=== PATIENT | female | born 1955 | race Hispanic/Latino ===

== ENCOUNTER 2019-09-27 07:27 | Outpatient (CLI) | payer MEDICARE ==
[2019-09-27 12:13] LABS: #Eosinphils 0.2 thou/uL (0.0-0.7); #Lymphocytes 2.9 thou/uL (1.20-3.40); %Basophils 0.4 % (0.0-1.0); %Eosinophils 2.1 % (0.0-10.0); %Lymphocytes 28.7 % (21.0-51.0); %Monocytes 9.9 % (0.0-10.0); %Neutrophils 58.9 % (42.0-75.0); Hemoglobin 11.6 g/dL (12.0-16.0); Mean Corpuscular HGB CONC 33.7 g/dL (32.0-36.0); Mean Corpuscular Hemoglobin 31.5 pg (27.0-31.0); Mean Corpuscular Volume 93.4 fL (78.0-98.0); Mean Platelet Volume 8.5 fL (7.4-10.4); Platelet Count 297 thou/uL (130-400); RBC Distribution Width 11.8 % (11.5-14.5); Red Blood Cell (RBC) Count 3.69 mill/uL (4.20-5.40); White Blood Cell (WBC) Count 10.2 thou/uL (4.8-10.8)
[2019-09-27 12:31] LABS: ALT (SGPT) 10 U/L (8-55); AST (SGOT) 17 U/L (5-34); Albumin 4.2 g/dL (3.4-4.8); Alkaline Phosphatase 74 U/L (40-110); Anion Gap 11 mmol/L (10-20); BUN (Urea Nitrogen) 23 mg/dL (9.8-20.1); Bilirubin, Total 0.4 mg/dL (0.2-1.2); Calc. Creatinine Clearance 0 mL/min (70-130); Calcium 9.3 mg/dL (7.8-10.44); Carbon Dioxide 25 mmol/L (23-31); Chloride 103 mmol/L (98-107); Estimated GFR-MDRD 45; Globulin 3.3 g/dL (2.4-3.5); Glucose 281 mg/dL (80-115); Potassium 4.6 mmol/L (3.5-5.1); Protein, Total 7.5 g/dL (6.0-8.3); Sodium 134 mmol/L (136-145)
--- NOTE | 2019-09-27 14:25 | EKG ---
Test Reason : Blood Pressure : / mmHG Vent. Rate : 087 BPM Atrial Rate : 087 BPM P-R Int : 158 ms QRS Dur : 094 ms QT Int : 390 ms P-R-T Axes : 069 067 116 degrees QTc Int : 469 ms Sinus rhythm with frequent PAC's Voltage criteria for left ventricular hypertrophy Nonspecific ST and T wave abnormality Abnormal ECG Confirmed by DR. Cait GARG ([id number]) on 09/27/2019 2:25:08 PM Referred By: ANKITA Confirmed By:DR. Cait GARG
== END 2019-09-27 07:28 | disposition home or self-care (01) ==
LOC: LABBT 07:27
PROVIDERS: ATTEND Specialist
DX: Z01.818 Encounter for other preprocedural examination (principal); I12.9 Hypertensive chronic kidney disease with stage 1 through stage 4 chronic kidney disease, or unspecified chronic kidney disease; E11.22 Type 2 diabetes mellitus with diabetic chronic kidney disease; K43.2 Incisional hernia without obstruction or gangrene
CPT/HCPCS: 80053; 85025; 93005; 93010

== ENCOUNTER 2019-10-02 08:42 | Inpatient (IN) | payer MEDICARE ==
[2019-09-27 11:16] VITALS: BMI 29.5
--- NOTE | 2019-09-30 10:10 | HP ---
HISTORY OF PRESENT ILLNESS: Luisa Horowitz is a 64-year-old female, who on 09/28/2007 had a ventral hernia repair, omentectomy, resection of anterior abdominal wall excessive skin, performed by Dr. Hanks. Mesh was used to reinforce the closure. The patient has suffered a recurrence. She has no other hernia to be present more than 30 years since after . PAST MEDICAL HISTORY: 1. Diabetes. 2. Hypertension. 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 In 2005, she had an echocardiogram, showing arterial sclerosis as a known murmur, asymptomatic cardiac lambert, no chest pain or pressure. Tobacco, none. Alcohol, none. ALLERGIES: NONE. MEDICATIONS: 1. Metformin 1000 mg twice a day. 2. Glipizide 5 mg twice a day. 3. Benicar 40 mg once a day. 4. Amlodipine 10 mg once a day. 5. Hydrochlorothiazide 25 mg. 6. Metoprolol 50 mg a day. She has been recommended colonoscopy, but has not downtime to do that. REVIEW OF SYSTEMS: Ten-point noncontributory, otherwise no cardiac symptoms. PHYSICAL EXAMINATION: VITAL SIGNS: Weight 155 pounds, height 5 feet 1 inches, 30 BMI, blood pressure 196/73, heart rate 101, temperature 97.9 degrees. HEAD, EARS, EYES, NOSE AND THROAT: Unremarkable. LUNGS: Clear to auscultation. CARDIAC: Regular rate and rhythm. A 2/6 ejection murmur. ABDOMEN: Soft and nontender. Between the pubis and the umbilicus, there is a hernia sac. On supine, I can incompletely reduce this. The defect seems to be moderate. The patient has about a dime-sized breakdown of skin with healthy granulation tissue. EXTREMITIES: Unremarkable. No ankle edema. NEUROLOGIC: Intact. LYMPHATIC: No lymphadenopathy in neck, axilla, groins. SKIN: Normal. ASSESSMENT AND PLAN: 1. Incisional hernia, previously repaired in [address] Hanks. Plan robot repair possibly using mesh. I have to perform an open procedure, remove the redundant hernia sac. She will wear a Band-Aid antibiotic ointment to protect the skin and prevent it from being hopefully progressing to close this open area, but if does not, we will proceed. She understands risks and benefits and consent. We will plan robot mesh repair of incisional hernia with possible open resection of the hernia sac. 2. Diabetes mellitus. 3. Hypertension. Job ID: [id number]
[2019-10-02] MEDS ORDERED: Rocuronium Bromide 10 MG/ML (10ML VIAL) ONE (09:42)
[2019-10-02] MEDS ORDERED: PROPOFOL 200 MG/20 ML VIAL ONE (09:42)
[2019-10-02] MEDS ORDERED: Glycopyrrolate 0.2 MG/ML 5 ML SYRINGE ONE (09:42)
[2019-10-02] MEDS ORDERED: Ondansetron PF 4 MG/2 ML Vial ONE (09:42)
[2019-10-02] MEDS ORDERED: Lidocaine 1% PF 5 ML VIAL ONE (09:42)
[2019-10-02] MEDS ORDERED: Ketorolac Tromethamine 30 MG/ML VIAL ONE (09:50)
[2019-10-02] MEDS ORDERED: Lidocaine 2% PF 5 ML VIAL ONE (10:15)
[2019-10-02] MEDS ORDERED: Bupivacaine HCl 0.5%/Epinephrine 1:200,000/PF 30 ml Vial ONE (10:47)
[2019-10-02] MEDS ORDERED: Famotidine/PF 20 mg/2ml Vial ONE (11:14)
[2019-10-02] MEDS ORDERED: Fentanyl 100 MCG/2 ML VIAL ONE ×2 (11:14→15:48)
[2019-10-02] MEDS ORDERED: Dextrose 5% in Water 1,000 ML IV PRN (13:53)
[2019-10-02] MEDS ORDERED: Ondansetron ODT 4 MG TAB PO PRN (13:53)
[2019-10-02] MEDS ORDERED: Morphine 4 MG/ML VIAL SLOW IVP PRN (13:53)
[2019-10-02] MEDS ORDERED: Morphine 2 MG/ML SYRINGE SLOW IVP PRN (13:53)
[2019-10-02] MEDS ORDERED: hydrALAZINE 20 MG/ML VIAL SLOW IVP PRN (13:53)
[2019-10-02] MEDS ORDERED: Dextrose 50% Abboject 50 ML SYRINGE SLOW IVP PRN (13:53)
[2019-10-02] MEDS ORDERED: Ondansetron PF 4 MG/2 ML Vial IVP PRN (13:53)
[2019-10-02] MEDS ORDERED: Acetaminophen 500 MG TAB PO PRN (13:57)
[2019-10-02] MEDS ORDERED: Acetaminophen 1,000 MG in Premix Bag 1 BAG IVPB PRN (13:57)
[2019-10-02] MEDS ORDERED: Promethazine HCl 25 MG/ML VIAL IM PRN (14:18)
[2019-10-02] MEDS ORDERED: Ondansetron HCl/PF 4 MG/2 ML Vial IVP PRN (14:18)
[2019-10-02] MEDS ORDERED: Promethazine HCl 25 MG/ML VIAL SLOW IVP PRN (14:18)
--- NOTE | 2019-10-02 16:28 | OP ---
DATE OF PROCEDURE: 10/02/2019 PREOPERATIVE DIAGNOSIS: Recurrent incisional hernia with incarcerated small bowel and colon with small dime size skin excoriation from a pressure over close. POSTOPERATIVE DIAGNOSIS: Recurrent incisional hernia with incarcerated small bowel and colon with small dime size skin excoriation from a pressure over close. Enterotomy closed intraoperatively. Severe adhesions with small bowel adherent to old mesh eventrated into the large hernia sac, suprapubic lower midline. PROCEDURES PERFORMED: Robot laparoscopic adhesiolysis noting Indonesian cheese defects in the fascia superiorly midline above her incarcerated incisional hernia with reduction of incarceration, laparoscopic adhesiolysis, laparoscopic repair of enterorrhaphy, closure of fascial defect. Note, plans to return to the operating [address] mesh to reinforce this repair to prevent recurrence and to excise the hernia sac and old mesh through skin incisions. ANESTHESIA: General, local 0.5% Marcaine with epinephrine 30 mL. DESCRIPTION OF PROCEDURE: The patient was taken to the operating room, where under general anesthesia, Rios catheter was placed at the beginning of procedure, removed at the end. Abdomen was prepared with ChloraPrep and draped in routine fashion. A supraumbilical left midline incision was made. Pneumoperitoneum to 15 mmHg with a Veress needle, replaced with an 11 mm port balloon and video laparoscope was inserted. Right and left lateral incision was made, 8 mm port was placed. Robot was docked with the patient in Trendelenburg. There was noted to be adhesions of the small bowel and omentum to the anterior abdominal wall and these were taken down laparoscopically with cautery hemostasis. There was noted to be incarcerated small bowel and colon into hernia defect below this. There was a Indonesian cheese type defects several centimeters above the main large incarcerated incisional hernia. The adhesions were taken down. Colon reduced as possible. There was evident mesh eventrated into the hernia sac. I had to divide some of the mesh and remove some of the mesh, unable to see it before complete the adhesiolysis. Once the adhesiolysis was completed, there was noted to be a small defect in the small bowel. This was closed with continuous suture of 3-0 V-Loc suture. Once this was closed to and fro, good closure was approximated and accomplished without narrowing. No stool was noted. No spillage noted. Good hemostasis noted. Pneumoperitoneum reduced to 8 mmHg and #1 Stratafix suture used to close the defect along with adjacent Indonesian cheese defects with to and fro suture. Once this was accomplished, pneumoperitoneum reduced. Rios was removed. All instruments were removed. There was good hemostasis noted. Plan at this time is to admit the patient on intravenous antibiotics and plan in 40 hours. Repeat robot laparoscopic application of mesh to reinforce this fascial closure and to excise the anterior look very large massive hernia sac along with excoriated skin and also the old mesh anteriorly. Job ID: [id number]
[2019-10-02] MEDS: Sodium Chloride 0.9% 1,000 ML IV SCH (17:06)
[2019-10-02] MEDS: glipiZIDE 5 MG TAB PO SCH (17:06)
[2019-10-02] MEDS: Meropenem 2 GM, Admixture Fee 1 EACH in Sodium Chloride 0.9% 100 ML IVPB SCH (18:27)
[2019-10-02] MEDS: Ketorolac Tromethamine 30 MG/ML VIAL IVP PRN (18:34)
[2019-10-02] MEDS: traMADol HCl 50 MG TAB PO PRN (19:11)
[2019-10-02] MEDS: Enoxaparin Sodium 30 MG/0.3 ML SYRINGE SC SCH (20:04)
[2019-10-03] MEDS: Meropenem 2 GM, Admixture Fee 1 EACH in Sodium Chloride 0.9% 100 ML IVPB SCH ×3 (02:21→17:51)
[2019-10-03] MEDS: Sodium Chloride 0.9% 1,000 ML IV SCH ×2 (02:23→06:24)
[2019-10-03] MEDS: traMADol HCl 50 MG TAB PO PRN (05:43)
[2019-10-03 06:21] LABS: #Eosinphils 0.1 thou/uL (0.0-0.7); #Lymphocytes 2.3 thou/uL (1.20-3.40); #Monocytes 1.5 thou/uL (0.11-0.59); #Neutrophils 9.1 thou/uL (1.40-6.50); %Basophils 0.3 % (0.0-1.0); %Eosinophils 0.5 % (0.0-10.0); %Lymphocytes 17.8 % (21.0-51.0); %Monocytes 11.5 % (0.0-10.0); %Neutrophils 69.9 % (42.0-75.0); Hemoglobin 10.8 g/dL (12.0-16.0); Mean Corpuscular HGB CONC 34.5 g/dL (32.0-36.0); Mean Corpuscular Hemoglobin 32.3 pg (27.0-31.0); Mean Corpuscular Volume 93.8 fL (78.0-98.0); Mean Platelet Volume 8.1 fL (7.4-10.4); Platelet Count 267 thou/uL (130-400); RBC Distribution Width 11.8 % (11.5-14.5); Red Blood Cell (RBC) Count 3.35 mill/uL (4.20-5.40); White Blood Cell (WBC) Count 13.1 thou/uL (4.8-10.8)
[2019-10-03] MEDS: glipiZIDE 5 MG TAB PO SCH ×2 (06:32→17:51)
[2019-10-03 06:39] LABS: Anion Gap 12 mmol/L (10-20); BUN (Urea Nitrogen) 23 mg/dL (9.8-20.1); Calc. Creatinine Clearance 61 mL/min (70-130); Calcium 8.3 mg/dL (7.8-10.44); Carbon Dioxide 25 mmol/L (23-31); Chloride 105 mmol/L (98-107); Estimated GFR-MDRD 56; Glucose 126 mg/dL (80-115); Potassium 5.1 mmol/L (3.5-5.1); Sodium 137 mmol/L (136-145)
--- NOTE | 2019-10-03 08:32 | PRG ---
DATE OF SERVICE: 10/03/2019 SUBJECTIVE: Uzair Mattson is doing well today. She is not in any pain. She has not walked any further than around her room. She is advised to walk in the hallway several times today. OBJECTIVE: VITAL SIGNS: Temperature 98.5 degrees, pulse 82, blood pressure 145/64. LUNGS: Clear to auscultation. CARDIAC: Regular rate and rhythm without murmur or gallop. ABDOMEN: Soft. Bowel sounds present. Laparoscopic wounds well healed. Good bowel sounds. White count is 13, hemoglobin 10.8, 137 sodium, 5.1 potassium, BUN 23, creatinine 1.0, glucose 126. ASSESSMENT AND PLAN: Doing well after laparoscopic robotic adhesiolysis, hernia repair without mesh and repair of enterotomy that was inherent to the procedure and the known risk of the procedure and not a complication. For this reason, mesh was not placed, but it will be placed tomorrow. She will be n.p.o. after midnight tonight and have a robot laparoscopic replacement of mesh and then in addition, removal of her hernia sac and eventrate the mesh and the hernia sac tomorrow. She understands risks and benefits, and consents. We will continue intravenous antibiotics. Job ID: [id number]
[2019-10-03] MEDS: Amlodipine 10 MG TAB PO SCH (09:11)
[2019-10-03] MEDS: Losartan 25 MG TAB PO SCH (09:11)
[2019-10-03] MEDS: metFORMIN XR 500 MG TAB PO SCH ×2 (09:11→17:51)
[2019-10-03] MEDS: Ketorolac Tromethamine 30 MG/ML VIAL IVP PRN (12:02)
[2019-10-03] MEDS ORDERED: Iopamidol-370 76% 500 ML 1 ML ONE (15:32)
[2019-10-03] MEDS: HumaLOG 300 UNITS/3 ML VIAL SC PRN (17:51)
[2019-10-03] MEDS ORDERED: Acetaminophen 500 MG TAB PO PRN (20:00)
[2019-10-03 21:03] LABS: Actual Bicarbonate (HCO3a) 25.4 mEq/L (22-28); Base Excess (BEa) -1.2 mEq/L (-2.0 to +3.0); CO2 Tension 50.6 mmHg (35.0-45.0); Calcium, Ionized 1.09 mmol/L (1.12-1.30); Carboxyhemoglobin (COHb) 0.8 gm% (0.0-3.0); Potassium - ABG Lab 4.41 mmol/L (3.70-5.30); pH, Arterial 7.32 (7.35-7.45)
[2019-10-03 21:10] LABS: O2 Tension (PaO2) 48.8 mmHg (> 80.0)
[2019-10-03 21:12] LABS: Puncture Site R RADIAL
--- NOTE | 2019-10-03 21:26 | RAD ---
Chest one view HISTORY: Dyspnea. COMPARISON: 06/12/2006. FINDINGS: Cardiac silhouette is magnified and upper limits of normal in size. Pulmonary vasculature i s engorged with patchy bilateral perihilar and bibasilar infiltrates and widespread reticulonodular interstitial prominence. Mediastinum is midline with aortic calcification. IMPRESSION: Pulmonary vascular congestion/edema. Atherosclerosis. Borderline cardiomegaly.
[2019-10-03] MEDS: Enoxaparin Sodium 30 MG/0.3 ML SYRINGE SC SCH (21:57)
--- NOTE | 2019-10-03 21:59 | CT ---
CT arteriogram chest with IV contrast and 3-D imaging HISTORY: Chest pain. Dyspnea. COMPARISON: 06/11/2006. FINDINGS: There is good contrast opacification of the pulmonary arteries and the thoracic aorta. The left common carotid artery is very small and not well opacified. The brachiocephalic artery on the right is enlarged. The descending thoracic aorta is again shown to be very small, approximately 1.1 c m greatest diameter above the level of the diaphragm. Prominent calcification throughout the arterial structures. Small amount of bilateral pleural fluid with large amount of dependent bibasilar atelectasis and scat tered areas of additional atelectasis throughout each lung. Pulmonary vasculature is diffusely engorged. No evidence of mediastinal adenopathy. There are degenerative changes of the thoracic spine. IMPRESSION: No CT evidence of pulmonary embolus. Pulmonary vascular congestion with small bilateral pleural effusions. Significant bibasilar atelectas is. Atherosclerosis. 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
[2019-10-03] MEDS ORDERED: Furosemide 40 MG/4 ML VIAL SLOW IVP SCH (22:00)
--- NOTE | 2019-10-03 23:25 | CON ---
DATE OF CONSULTATION: 10/03/2019 PRIMARY CARE PROVIDER: Bobbi De La Torre MD PRIMARY SERVICE ATTENDING: Juanpablo Quan MD REASON FOR CONSULT: Shortness of breath. HISTORY OF PRESENT ILLNESS: This is a 64-year-old female, who was originally admitted on 10/02/2019 for recurrent incisional abdominal hernia with incarcerated small bowel and colon, undergoing robot-assisted adhesiolysis on 10/02/2019 with repair of enterorrhaphy and facial defect. Current plans were a second procedure for mesh placement. Postoperatively, patient apparently developed increasing shortness of breath and cough with hypoxia, alerting the nurse. The patient was noted with O2 saturations in the 60% range and placed on a non-rebreather. Portable chest x-ray and CT angiogram of the chest were obtained with plain radiographs showing evidence of pulmonary edema. The daughter reports the patient had similar episode approximately 12 years ago after a minor surgical procedure. The patient required diuretic therapy during the hospitalization similar to her current presentation. No current history of COPD, asthma, or smoking. The patient received IV Lasix 40 mg x1 dose and the hospitalist service is consulted for further evaluation. PAST MEDICAL HISTORY: 1. Recurrent incisional abdominal hernia. 2. Diabetes mellitus, type 2. 3. Hypertension. PAST SURGICAL HISTORY: 1. Status post resection of anterior abdominal wall with mesh placement. 2. Status post section. CURRENT MEDICATIONS: 1. Metformin 1000 mg p.o. b.i.d. 2. Iron one capsule p.o. daily. 3. Hydrochlorothiazide 25 mg p.o. daily. 4. Glipizide 5 mg p.o. b.i.d. 5. Amlodipine 10 mg p.o. daily. 6. Metoprolol succinate XL 50 mg p.o. daily. 7. Benicar 40 mg p.o. daily. ALLERGIES: NO KNOWN DRUG ALLERGIES. FAMILY HISTORY: Positive for diabetes mellitus and hypertension. SOCIAL HISTORY: No current alcohol, tobacco, or illicit drug use. Works as a cook in a kitchen. Accompanied by her daughter in the hospital. REVIEW OF SYSTEMS: CONSTITUTIONAL: Negative for weight loss or gain, ability to conduct usual activities. SKIN: Negative for rash, itching. EYES: Negative for double vision, pain. ENT/MOUTH: Negative for nose bleeding, neck stiffness, pain, tenderness. CARDIOVASCULAR: Negative for palpitations, dyspnea on exertion, orthopnea. RESPIRATORY: Negative for shortness of breath, wheezing, cough, hemoptysis, fever or night sweats. GASTROINTESTINAL: Negative for poor appetite, abdominal pain, heartburn, nausea, vomiting, constipation, or diarrhea. GENITOURINARY: Negative for urgency, frequency, dysuria, nocturia. MUSCULOSKELETAL: Negative for pain, swelling. NEUROLOGIC/PSYCHIATRIC: Negative for anxiety, depression. ALLERGY/IMMUNOLOGIC: Negative for skin rash, bleeding tendency. Otherwise negative except as stated per HPI. PHYSICAL EXAMINATION: VITAL SIGNS: Currently, blood pressure 169/62, pulse 106, respiratory rate 24, temperature 98.3 degrees Fahrenheit, O2 saturation 99% on 15 L/minute by Venturi mask. GENERAL APPEARANCE: This is a 64-year-old female, Wallisian-speaking only, on current non-rebreather, in [id number] respiratory distress. HEENT: Pupils are equal, round, reactive to light and accommodation. Extraocular muscles are intact. No scleral icterus. No conjunctival injection. Nares patent. OP is clear. NECK: Supple. No cervical adenopathy. No thyromegaly. No carotid bruits. No JVD appreciated. Cervical spine with full active and passive range of motion. No meningeal signs noted. CHEST: Coarse rhonchi and crackles bilaterally. Diminished breath sounds in the bases. CARDIOVASCULAR: S1, S2 without noted murmur, rub, or gallop. Positive tachycardia. ABDOMEN: Obese with postsurgical changes noted. Bowel sounds are positive in all 4 quadrants. There is no palpable mass. No rebound or guarding noted. Mild tenderness to palpation in the midline. EXTREMITIES: Warm and dry with fair turgor. No clubbing, cyanosis, or asymmetric edema appreciated. Pulses palpable distally at the dorsalis pedis, posterior tibial, and popliteal arteries bilaterally. Capillary refill less than 2 seconds. NEUROLOGIC: Cranial nerves 2 through 12 are grossly intact. No focal or lateralizing signs appreciated. PERTINENT LABORATORY AND X-RAY FINDINGS: Sodium 137, potassium 5.1, chloride 105, CO2 of 25, BUN 23, creatinine 1.00, estimated GFR 56, glucose 126, calcium 8.3. CBC showed white blood cell count of 13.1, hemoglobin 11, hematocrit 31, platelet count 267 with 70% neutrophils. ABG dated 10/03/2019 at 8:56 p.m. showed a pH 7.32, pCO2 of 50.6, pO2 of 49, bicarb 25, O2 saturation 84%. CT angiogram of the chest dated 10/03/2019, showed no evidence for pulmonary embolus. Portable chest x-ray dated 10/03/2019, showed pulmonary vascular edema bilaterally. EKG dated 10/03/2019, by my interpretation shows sinus tachycardia with heart rates in the low 100s. Normal R-wave progression noted in the precordial leads. Normal axis. No acute ST-T wave changes noted. ASSESSMENT AND PLAN: 1. Acute hypoxic respiratory failure. The patient will continue on a non-rebreather with 100% FiO2. Likely etiology due to pulmonary edema. See #2 below for management. Consider BiPAP noninvasive mechanical ventilation if respiratory status deteriorates. 2. Acute pulmonary edema. Lasix 40 mg IV x1 now with repeat in 2 hours. Check BNP and troponin I. 2D transthoracic echocardiogram pending. Saline lock IV fluids. 3. Diabetes mellitus, type 2. Continue insulin sliding scale for reflexive coverage. Serial Accu-Cheks before meals and at bedtime. Glipizide 5 mg b.i.d. 4. Hypertension. Continue home blood pressure regimen and monitor clinical response. 5. Recurrent incisional hernia, status post robot laparoscopic adhesiolysis with repair of enterorrhaphy and fascial defect. Postop day #1. General pain control. 6. Prophylaxis. SCDs while in bed. Walking program for mobilization. Pain control as clinically indicated. 7. Code status is full. Surrogate medical decision maker is patient's daughter. Thank you for the consult. We will continue to follow with primary service. Job ID: [id number]
[2019-10-04] MEDS ORDERED: Furosemide 40 MG/4 ML VIAL SLOW IVP SCH ×2 (00:01→14:15)
[2019-10-04 00:53] LABS: Troponin I 0.094 ng/mL (< 0.028)
[2019-10-04] MEDS: Meropenem 2 GM, Admixture Fee 1 EACH in Sodium Chloride 0.9% 100 ML IVPB SCH ×3 (03:08→17:17)
[2019-10-04 05:19] LABS: #Lymphocytes 1.8 thou/uL (1.20-3.40); #Monocytes 1.6 thou/uL (0.11-0.59); #Neutrophils 14.2 thou/uL (1.40-6.50); %Basophils 0.3 % (0.0-1.0); %Eosinophils 0.1 % (0.0-10.0); %Lymphocytes 10.3 % (21.0-51.0); %Neutrophils 80.3 % (42.0-75.0); Hemoglobin 11.1 g/dL (12.0-16.0); Mean Corpuscular HGB CONC 33.8 g/dL (32.0-36.0); Mean Corpuscular Hemoglobin 31.9 pg (27.0-31.0); Mean Corpuscular Volume 94.6 fL (78.0-98.0); Platelet Count 277 thou/uL (130-400); RBC Distribution Width 11.7 % (11.5-14.5); Red Blood Cell (RBC) Count 3.46 mill/uL (4.20-5.40); White Blood Cell (WBC) Count 17.6 thou/uL (4.8-10.8)
[2019-10-04 05:43] LABS: Anion Gap 14 mmol/L (10-20); BUN (Urea Nitrogen) 22 mg/dL (9.8-20.1); Calc. Creatinine Clearance 51 mL/min (70-130); Calcium 8.7 mg/dL (7.8-10.44); Carbon Dioxide 27 mmol/L (23-31); Chloride 97 mmol/L (98-107); Estimated GFR-MDRD 43; Glucose 165 mg/dL (80-115); Potassium 4.3 mmol/L (3.5-5.1); Sodium 134 mmol/L (136-145)
[2019-10-04 05:47] LABS: Troponin I 0.097 ng/mL (< 0.028)
[2019-10-04 05:53] LABS: Troponin I 0.092 ng/mL (< 0.028)
--- NOTE | 2019-10-04 07:50 | PRG ---
DATE OF SERVICE: 10/04/2019 SUBJECTIVE: Ms. Mattson 2 days ago underwent laparoscopic robotic reduction of incarcerated incisional hernia with closure of the defect but mesh was not applied due to enterotomy closed robotically. She tolerated diet yesterday and passed gas, has not had a bowel movement. Late yesterday evening I was called by nursing stating that she had progressive hypoxia. She was evaluated late yesterday evening by Respiratory and noted to be hypoxic. Blood gases obtained, revealed a PO2 of 48, did improve saturations on rebreather. PCO2 of 50. Her pH was 7.32. The patient had a chest x-ray noting vascular congestion. The patient had a CT angio that was negative for pulmonary embolism. She was on Lovenox. The patient had been walking into the room to the bathroom and had been encouraged earlier in the day yesterday to be walking in the hallways. Because of her respiratory status, she was moved to [facility]. saw her in consultation. She was placed on non-rebreather initially, then weaned to 4 L nasal prong, then 2 L nasal prong. She feels much better this morning. Chest x-ray reveals vascular congestion. The patient is a diabetic, has not had a cardiac workup in the past and has not any chest pain. OBJECTIVE: VITAL SIGNS: Blood pressure 158/63, 99 heart rate, 20 respiratory rate this morning. She was 28 respiratory rate yesterday evening during the event. PULMONARY: No wheezing. CARDIAC: Regular rate and rhythm. ABDOMEN: Soft, postoperative tenderness, occasional bowel sounds, laparoscopic wounds look good. [place]: [place] [address] this morning, hemoglobin 11. Differential white count is 80% neutrophils, no bands. Sodium 134, potassium 97, BUN 22, creatinine 1.26, glucose 165. ASSESSMENT AND PLAN: Status post incisional hernia. Plan was to return to the operating room for laparoscopic robotic placement of mesh and excision of the hernia sac, but this will be postponed at this time. We will obtain a stat echocardiogram. Await Cardiology input and evaluate her. Her abdomen seems soft and I do not think there are any complications from her enterotomy repair. We will start her on full liquids and monitor. We will discuss with Cardiology whether we should obtain a cardiac stress test today or not. Her BNP was elevated to 644. As noted above, she has not had a cardiac workup in the past. She is a nonsmoker. Job ID: [id number]
--- NOTE | 2019-10-04 07:56 | RAD ---
Chest AP view INDICATION: Follow-up chest infiltrate COMPARISON: None FINDINGS: Lungs:The bilateral airspace opacities involving the right lung and left lower lobe is stable. Cardiac silhouette:Cardiomegaly is stable. Pulmonary vasculature:Prominent but stable Pleural spaces:Small bilateral pleural effusions persist Upper abdomen:No abnormality seen. Osseous structures: No acute osseous abnormality. Additional findings:None. IMPRESSION: Stable exam
[2019-10-04] MEDS ORDERED: Sodium Chloride 0.9% 1,000 ML IV SCH (08:00)
[2019-10-04] MEDS: metFORMIN XR 500 MG TAB PO SCH ×2 (08:59→17:16)
[2019-10-04] MEDS: glipiZIDE 5 MG TAB PO SCH ×2 (08:59→17:16)
[2019-10-04] MEDS: Losartan 25 MG TAB PO SCH (09:00)
[2019-10-04] MEDS: Amlodipine 10 MG TAB PO SCH (09:00)
[2019-10-04 09:08] LABS: Troponin I 0.095 ng/mL (< 0.028)
--- NOTE | 2019-10-04 09:28 | PDOC.HOSPP ---
- Subjective Encounter Date: 10/04/19 Encounter Time: 09:27 Subjective: Ms. Horowitz was seen today in follow-up of acute respiratory failure following surgery. She does not have any complaints this moring. She denies trouble breathing. She denies chest pain. She does not constipation, and poor appetite. - Objective Vital Signs & Weight: Vital Signs (12 hours) Temp Pulse Resp BP Pulse Ox 10/04/19 09:00 96 153/62 H 10/04/19 08:00 99.0 F 10/04/19 07:23 98 10/04/19 04:00 95 10/04/19 00:37 96 10/03/19 23:56 97 10/03/19 23:17 98.1 F 96 16 97 Weight Weight 159 lb Most Recent Monitor Data Heart Rate from ECG 99 NIBP 158/63 NIBP BP-Mean 94 Respiration from ECG 20 SpO2 96 I&O: 10/03/19 10/04/19 10/05/19 06:59 06:59 06:59 Intake Total 2150 1250 Balance 2150 1250 Result Diagrams: 10/04/19 05:07 10/04/19 05:07 Additional Labs: Accuchecks 10/03/19 10/03/19 10/03/19 21:54 15:53 11:43 POC Glucose 123 H 224 H 186 H Hospitalist ROS - Medication Medications: Active Medications Generic Name Dose Route Start Last Admin Trade Name Freq PRN Reason Stop Dose Admin Amlodipine Besylate 10 mg 10/03/19 09:00 10/04/19 09:00 Norvasc PO 10 mg DAILY AARON Administration Enoxaparin Sodium 30 mg 10/02/19 21:00 10/03/19 21:57 Lovenox SC 30 mg 2100 AARON Administration Glipizide 5 mg 10/02/19 16:30 10/04/19 08:59 Glucotrol PO 5 mg BID-AC AARON Administration Meropenem 2 gm/ Miscellaneous 100 mls @ 0 mls/hr 10/02/19 18:00 10/04/19 09: 04 Medication 1 each/ Sodium IVPB 100 mls Chloride 0200,1000,1800 AARON Administration Insulin Human Lispro 0 units 10/02/19 13:53 10/03/19 17:51 Humalog SC 4 unit .MODERATE SLIDING SC PRN Administration Moderate Correctional Scale Ketorolac Tromethamine 15 mg 10/02/19 13:57 10/03/19 12:02 Toradol IVP 10/07/19 13:58 15 mg Q6H PRN Administration Pain Losartan Potassium 100 mg 10/03/19 09:00 10/04/19 09:00 Cozaar PO 100 mg DAILY AARON Administration Metformin HCl 1,000 mg 10/03/19 08:00 10/04/19 08:59 Glucophage Xr PO 1,000 mg BID-WM AARON Administration Metoprolol Succinate 50 mg 10/03/19 09:00 10/04/19 09:12 Toprol Xl PO Not Given DAILY AARON Ondansetron HCl 4 mg 10/02/19 13:53 10/03/19 08:04 Zofran IVP 4 mg Q6H PRN Administration Nausea Sodium Chloride 10 ml 10/02/19 13:53 10/03/19 17:52 Flush - Normal Saline IVF 10 ml PRN PRN Administration Saline Flush Tramadol HCl 50 mg 10/02/19 13:57 10/03/19 05:43 Ultram PO 50 mg Q4H PRN Administration Moderate Pain (4-6) - Exam Eye: PERRL Heart: RRR, no murmur, no gallops, normal peripheral pulses, murmur present ( systolic), II/IV Respiratory: CTAB (with the exception of faint rales in the left base), no wheezes, normal chest expansion Gastrointestinal: soft, non-tender, non-distended, normal bowel sounds, no palpable masses, no hepatomegaly Extremities: no cyanosis, no clubbing, no edema Psychiatric: normal affect, normal behavior, A&O x 3 Hosp A/P (1) Acute respiratory failure with hypoxemia Code(s): J96.01 - ACUTE RESPIRATORY FAILURE WITH HYPOXIA Status: Acute (2) Incisional hernia Code(s): K43.2 - INCISIONAL HERNIA WITHOUT OBSTRUCTION OR GANGRENE Status: Acute (3) Diabetes mellitus type 2 in obese Code(s): E11.69 - TYPE 2 DIABETES MELLITUS WITH OTHER SPECIFIED COMPLICATION; E66.9 - OBESITY, UNSPECIFIED Status: Chronic (4) Hypertension Code(s): I10 - ESSENTIAL (PRIMARY) HYPERTENSION Status: Chronic - Plan * Acute respiratory failure- possibly due to diastolic dysfunction- will await Echo results * Will hold off on any additional Lasix today * Patient says she has had the heart murmur for years * Cardiology has also been consulted * DM- blood glucose is stable- continue Glypizide and Metformin as well as a SSI * HTN-blood pressure is a bit elevated- will continue Losartan and Metoprolol, and observe the trend
--- NOTE | 2019-10-04 12:17 | CON ---
DATE OF CONSULTATION: HISTORY OF PRESENT ILLNESS: Juan Francisco Mattson is a 64-year-old female, who speaks no Swiss. History is obtained by doctor with the help of a daughter, who states mom does not smoke, had some kind of viral illness about 2 weeks ago, but apparently not the flu. She now underwent surgery by Dr. Quan for a ventral hernia repair. This was apparently done on 08/29. She now presents to the hospital post recurrent incisional hernia repair, incarcerated small bowel. Postoperatively, she was having difficulty breathing, but no fever or chills. No cough. X-ray shows bilateral infiltrates. She is now in the MICU. We have plan to redo the surgery with the mesh later on pneumonia. PAST MEDICAL HISTORY: Otherwise, pertinent for diabetes and hypertension. HOME MEDICATIONS: 1. Amlodipine 10. 2. Metformin 1000 twice a day. 3. Glipizide 5. 4. Hydrochlorothiazide 25. 5. Pravachol 40. 6. Toprol-XL 50. ALLERGIES: NONE. SOCIAL AND FAMILY HISTORY: Unremarkable. REVIEW OF SYSTEMS: Ten-point, negative. PHYSICAL EXAMINATION: VITAL SIGNS: Saturations are 99%, temperature 99, blood pressure 150/62, and respiratory rate 18. CHEST: Bilateral rhonchi and crackles. CARDIAC: Normal S1 and S2. No gallops. ABDOMEN: No masses. LABORATORY DATA: Creatinine 1.26. . BNP 644. White count 16,000. IMPRESSION: Bilateral pneumonia, status post laparoscopic surgery for incarcerated hernia, hypertension, and diabetes. She is already on meropenem, which I would continue. I will add a low-dose steroids. Await input from Cardiology. We will follow. Consultation note of 70 minutes, 50% in direct patient care. Job ID: [id number]
[2019-10-04 12:53] LABS: Hemoglobin 10.7 g/dL (12.0-16.0); Mean Corpuscular HGB CONC 34.2 g/dL (32.0-36.0); Mean Corpuscular Hemoglobin 32.3 pg (27.0-31.0); Mean Corpuscular Volume 94.3 fL (78.0-98.0); Mean Platelet Volume 8.3 fL (7.4-10.4); Platelet Count 271 thou/uL (130-400); RBC Distribution Width 11.6 % (11.5-14.5); Red Blood Cell (RBC) Count 3.33 mill/uL (4.20-5.40); White Blood Cell (WBC) Count 18.3 thou/uL (4.8-10.8)
[2019-10-04 13:09] LABS: Anion Gap 12 mmol/L (10-20); BUN (Urea Nitrogen) 24 mg/dL (9.8-20.1); Calc. Creatinine Clearance 46 mL/min (70-130); Calcium 8.8 mg/dL (7.8-10.44); Carbon Dioxide 30 mmol/L (23-31); Chloride 98 mmol/L (98-107); Estimated GFR-MDRD 38; Glucose 149 mg/dL (80-115); Potassium 4.4 mmol/L (3.5-5.1); Sodium 136 mmol/L (136-145)
[2019-10-04 13:23] LABS: Band 3 % (5-11); Lymphocytes 12 % (21-51); MDiff Complete? YES; Monocytes 10 % (0-10); Neutrophil 74 % (42-75); Platelet Morphology Comment Appears Adequate; Polychromasia SLIGHT = 2-3 cells (100X) (0-2/hpf)
[2019-10-04] MEDS ORDERED: Aspirin 81 mg Enteric Coated Tablet PO SCH (14:15)
[2019-10-04] MEDS ORDERED: Carvedilol 6.25 MG TAB PO SCH (14:45)
[2019-10-04] MEDS: Carvedilol 6.25 MG TAB PO SCH (17:16)
--- NOTE | 2019-10-04 19:56 | CON ---
DATE OF CONSULTATION: HISTORY OF PRESENT ILLNESS: This patient is a pleasant 64-year-old woman with congestive heart failure. Ms. Horowitz came to the hospital for surgery of her abdominal incisional hernia repair. The patient tolerated the procedure well, did well. However, the following day which was yesterday, she became short of breath and became increasingly short of breath until she went into pulmonary edema. She received furosemide with some improvement in her symptoms, but her breathing is still not back to normal. There is no chest pain or pressure. Her troponins are indeterminate. PAST HISTORY: 1. Diabetes, longstanding. 2. Hypertension, longstanding. MEDICATIONS: At home, 1. Amlodipine. 2. Metformin. 3. Glipizide. 4. Hydrochlorothiazide. 5. Benicar. 6. Metoprolol. 7. Iron. REVIEW OF SYSTEMS: CONSTITUTIONAL: No significant weight gain or loss. HEENT: Vision, no changes. Hearing, no changes. PULMONARY: Positive for shortness of breath. CARDIAC: No chest pain. Positive for shortness of breath. GASTROINTESTINAL: No nausea or vomiting. SKIN: No rashes. NEUROLOGIC: No unilateral weakness or numbness. PSYCHIATRIC: No unusual depression or anxiety. SOCIAL HISTORY: No alcohol or tobacco abuse. FAMILY HISTORY: Noncontributory. PHYSICAL EXAMINATION: GENERAL: This is a pleasant 64-year-old woman. She said she is breathing better, but her oxygen saturation is still 92% on nasal cannula oxygen. VITAL SIGNS: Blood pressure 146/52, pulse 102, sinus. HEENT: Eyes, sclerae nonicteric. Mucous membranes moist. NECK: Supple. No lymphadenopathy. LUNGS: Clear. No wheezing, rales, or rhonchi. CARDIAC: She is tachycardic for rest. No murmur, rub, or gallop. ABDOMEN: Soft and nontender. No hepatosplenomegaly. EXTREMITIES: Warm, dry. No clubbing or cyanosis. There is no edema. Femoral pulses are strong. SKIN: Warm and dry. IMAGING DATA: EKG shows sinus tachycardia, no acute changes. LABORATORY DATA: Cardiac enzymes were indeterminate with 0.097, 0.092, 0.095. Creatinine is 1.38. Estimated GFR is 30 with stage 3 renal failure. ASSESSMENT: 1. Recent abdominal surgery. 2. Pulmonary edema, likely cardiac in etiology. The differential diagnosis would be diastolic dysfunction versus underlying coronary artery disease or both. PLAN: 1. Echocardiogram has been obtained. Images will be available to review soon. 2. Continue diuretics. 3. We will change to carvedilol. 4. Continue angiotensin receptor rima. 5. Lipid profile tomorrow, probably need statin therapy. 6. We will follow with you, suspect the patient may end up needing cardiac catheterization prior to any other major surgery. Job ID: [id number]
[2019-10-04] MEDS: Enoxaparin Sodium 30 MG/0.3 ML SYRINGE SC SCH (20:53)
[2019-10-04] MEDS: HumaLOG 300 UNITS/3 ML VIAL SC PRN (21:25)
[2019-10-05] MEDS: Meropenem 2 GM, Admixture Fee 1 EACH in Sodium Chloride 0.9% 100 ML IVPB SCH ×3 (01:59→17:50)
[2019-10-05 04:13] LABS: #Eosinphils 0.2 thou/uL (0.0-0.7); #Monocytes 1.6 thou/uL (0.11-0.59); #Neutrophils 10.3 thou/uL (1.40-6.50); %Eosinophils 1.1 % (0.0-10.0); %Lymphocytes 19.8 % (21.0-51.0); %Monocytes 10.7 % (0.0-10.0); %Neutrophils 68.4 % (42.0-75.0); Hemoglobin 11.2 g/dL (12.0-16.0); Mean Corpuscular HGB CONC 34.2 g/dL (32.0-36.0); Mean Corpuscular Hemoglobin 32.6 pg (27.0-31.0); Mean Corpuscular Volume 95.4 fL (78.0-98.0); Platelet Count 237 thou/uL (130-400); RBC Distribution Width 11.6 % (11.5-14.5); Red Blood Cell (RBC) Count 3.43 mill/uL (4.20-5.40); White Blood Cell (WBC) Count 15.1 thou/uL (4.8-10.8)
[2019-10-05 04:29] LABS: Anion Gap 13 mmol/L (10-20); BUN (Urea Nitrogen) 29 mg/dL (9.8-20.1); Calc. Creatinine Clearance 50 mL/min (70-130); Calcium 8.8 mg/dL (7.8-10.44); Carbon Dioxide 30 mmol/L (23-31); Cardiac Risk 4.2 (Less than 4.5); Chloride 98 mmol/L (98-107); Cholesterol 173 mg/dl (< 200 Desired); Estimated GFR-MDRD 41; Glucose 76 mg/dL (80-115); HDL Cholesterol 41 mg/dL (>60 Neg Risk); LDL Cholesterol, Calculated 98 mg/dL; Potassium 4.1 mmol/L (3.5-5.1); Sodium 137 mmol/L (136-145); Triglycerides 170 mg/dL (Less than 150)
[2019-10-05] MEDS: glipiZIDE 5 MG TAB PO SCH ×2 (07:37→16:33)
[2019-10-05] MEDS: Carvedilol 6.25 MG TAB PO SCH ×2 (07:37→16:33)
[2019-10-05] MEDS: metFORMIN XR 500 MG TAB PO SCH ×2 (07:38→16:34)
[2019-10-05] MEDS: Amlodipine 10 MG TAB PO SCH (08:20)
[2019-10-05] MEDS: Furosemide 20 MG/2 ML VIAL SLOW IVP SCH (08:20)
[2019-10-05] MEDS: methylPREDNISolone Sod Succ 40 MG VIAL IVP SCH (08:20)
[2019-10-05] MEDS: Aspirin 81 mg Enteric Coated Tablet PO SCH (08:21)
[2019-10-05] MEDS: Losartan 25 MG TAB PO SCH (08:22)
--- NOTE | 2019-10-05 09:14 | PRG ---
DATE OF SERVICE: 10/05/2019 SUBJECTIVE: Juan Francisco Mattson is better this morning status post surgery for incisional hernia. OBJECTIVE: VITAL SIGNS: Temperature 98, blood pressure 165/60, pulse 75, respiratory rate 18. CHEST: No wheezing or crackles. CARDIAC: Normal S1 and S2. No gallops. ABDOMEN: No masses LABORATORY DATA: White count 15,000, H and H unremarkable. Creatinine 1.29. ASSESSMENT: Status post incisional hernia repair, severe deconditioning, possibly aspiration pneumonia. PLAN: Pulmonary lambert, continue present treatment, supportive care, and PT. Probably, can switch over to some oral antibiotics. We will follow. Job ID: [id number]
--- NOTE | 2019-10-05 10:35 | PRG ---
DATE OF SERVICE: 10/05/2019 SUBJECTIVE: Ms. Horowitz looks much better today. She is sitting up in a chair. She is on nasal cannula oxygen. OBJECTIVE: VITAL SIGNS: Her oxygen saturation is now 99%.. LUNGS: Clear anteriorly and posteriorly. CARDIAC: Normal S1, normal S2. ABDOMEN: Soft, nontender. EXTREMITIES: No edema. SKIN: Warm and dry. LABORATORY DATA: The BNP is down to 137. Echocardiogram showed normal left ventricular function. ASSESSMENT: 1. Congestive heart failure, occurred relatively abruptly. 2. Normal left ventricular function. 3. Suspect underlying coronary artery disease. PLAN: 1. Continue current medical regimen. 2. Repeat chest x-ray tomorrow. 3. Consideration for cardiac catheterization to be given. We will discuss again if there is family here tomorrow. Tentatively plan on catheterization on Monday. Job ID: [id number]
[2019-10-05] MEDS: HumaLOG 300 UNITS/3 ML VIAL SC PRN ×3 (10:54→20:50)
--- NOTE | 2019-10-05 16:46 | PDOC.HOSPP ---
- Subjective Encounter Date: 10/05/19 Encounter Time: 16:44 Subjective: Ms. Horowitz was seen today in follow-up of acute respiratory failure. She says she is feeling fine. She denies any dyspnea now. - Objective Vital Signs & Weight: Vital Signs (12 hours) Temp Pulse Resp BP Pulse Ox 10/05/19 16:33 113/49 L 10/05/19 16:09 98.2 F 10/05/19 13:17 98 25 H 10/05/19 10:31 99.0 F 10/05/19 08:20 165/60 H 10/05/19 07:37 147/56 H 10/05/19 07:20 98.4 F 10/05/19 07:15 96 10/05/19 07:03 100 23 H Weight Weight 159 lb Most Recent Monitor Data Heart Rate from ECG 101 NIBP 113/49 NIBP BP-Mean 70 Respiration from ECG 22 SpO2 95 I&O: 10/04/19 10/05/19 10/06/19 06:59 06:59 06:59 Intake Total 1250 440 480 Output Total 350 Balance 1250 90 480 Result Diagrams: 10/05/19 03:58 10/05/19 03:58 Additional Labs: Accuchecks 10/05/19 10/05/19 10/05/19 16:05 10:10 05:31 POC Glucose 221 H 214 H 93 10/04/19 10/04/19 20:42 17:01 POC Glucose 179 H 130 H Hospitalist ROS - Medication Medications: Active Medications Generic Name Dose Route Start Last Admin Trade Name Freq PRN Reason Stop Dose Admin Albuterol/Ipratropium 3 ml 10/04/19 13:00 10/05/19 13:17 Duoneb NEB 3 ml [id number] AARON Administration Amlodipine Besylate 10 mg 10/03/19 09:00 10/05/19 08:20 Norvasc PO 10 mg DAILY [facility] Administration Aspirin 81 mg 10/05/19 09:00 10/05/19 08:21 Ecotrin PO 81 mg DAILY [facility] Administration Carvedilol 6.25 mg 10/04/19 17:00 10/05/19 16:33 Coreg PO 6.25 mg BID-WM [facility] Administration Enoxaparin Sodium 30 mg 10/02/19 21:00 10/04/19 20:53 Lovenox SC 30 mg 2100 AARON Administration Furosemide 20 mg 10/05/19 09:00 10/05/19 08:20 Lasix SLOW IVP 20 mg DAILY [facility] Administration Glipizide 5 mg 10/02/19 16:30 10/05/19 16:33 Glucotrol PO 5 mg BID-AC [facility] Administration Meropenem 2 gm/ Miscellaneous 100 mls @ 0 mls/hr 10/02/19 18:00 10/05/19 10: 27 Medication 1 each/ Sodium IVPB 100 mls Chloride 0200,1000,1800 A[facility]ON Administration Insulin Human Lispro 0 units 10/02/19 13:53 10/05/19 16:33 Humalog SC 4 unit .MODERATE SLIDING SC PRN Administration Moderate Correctional Scale Ketorolac Tromethamine 15 mg 10/02/19 13:57 10/03/19 12:02 Toradol IVP 10/07/19 13:58 15 mg Q6H PRN Administration Pain Losartan Potassium 100 mg 10/03/19 09:00 10/05/19 08:22 Cozaar PO 100 mg DAILY [facility] Administration Metformin HCl 1,000 mg 10/03/19 08:00 10/05/19 16:34 Glucophage Xr PO 1,000 mg BID-WM [facility] Administration Methylprednisolone Sodium Succinate 40 mg 10/05/19 09:00 10/05/19 08:20 Solu-Medrol IVP 40 mg DAILY [facility] Administration Morphine Sulfate 2 mg 10/02/19 13:53 10/04/19 14:06 Morphine SLOW IVP 2 mg Q2H PRN Administration Severe Pain (7-10) Ondansetron HCl 4 mg 10/02/19 13:53 10/03/19 08:04 Zofran IVP 4 mg Q6H PRN Administration Nausea Sodium Chloride 10 ml 10/02/19 13:53 10/05/19 08:20 Flush - Normal Saline IVF 10 ml PRN PRN Administration Saline Flush Tramadol HCl 50 mg 10/02/19 13:57 10/03/19 05:43 Ultram PO 50 mg Q4H PRN Administration Moderate Pain (4-6) - Exam Eye: PERRL Heart: RRR, no murmur, no gallops, no rubs, normal peripheral pulses Respiratory: CTAB, no rales, no ronchi, normal chest expansion Gastrointestinal: soft, non-tender, non-distended, normal bowel sounds, no palpable masses, no hepatomegaly Extremities: no cyanosis, no clubbing, no edema Hosp A/P (1) Acute respiratory failure with hypoxemia Code(s): J96.01 - ACUTE RESPIRATORY FAILURE WITH HYPOXIA Status: Acute (2) Incisional hernia Code(s): K43.2 - INCISIONAL HERNIA WITHOUT OBSTRUCTION OR GANGRENE Status: Acute (3) Diabetes mellitus type 2 in obese Code(s): E11.69 - TYPE 2 DIABETES MELLITUS WITH OTHER SPECIFIED COMPLICATION; E66.9 - OBESITY, UNSPECIFIED Status: Chronic (4) Hypertension Code(s): I10 - ESSENTIAL (PRIMARY) HYPERTENSION Status: Chronic - Plan * Acute respiratory failure-Echo results noted. She has been seen by Dr. Wheeler - and he is contemplating Cardiac catheterization * Continue low dose Lasix * DM- blood glucose is beginning to trend up- likely from steroids- continue Metformin and Glyburide, as well as SSI- may need to add a long acting insulin if the trend continues * HTN-blood pressure is better
--- NOTE | 2019-10-05 19:24 | PRG ---
DATE OF SERVICE: 10/05/2019 SUBJECTIVE: Ms. Carlos Manuel Mattson is doing well today. She reports improving her abdominal discomfort postoperatively. Dr. Wheeler is seeing her and cardiac cath is planned for Monday. She is breathing easier. OBJECTIVE: VITAL SIGNS: Heart rate 91, respiratory rate 22, and blood pressure 140/56. LUNGS: Clear to auscultation. CARDIAC: Regular rate and rhythm without murmur or gallop. ABDOMEN: Soft, plus bowel sounds. Nontender. EXTREMITIES: Unremarkable. LABORATORY DATA: This morning, her white count is 15, hemoglobin 11.2, differential unremarkable. Basic metabolic profile normal except for mild chronic kidney disease, perhaps a mild JEANINE, which is stable and improved relative to yesterday. BUN 29 and creatinine 1.29. ASSESSMENT AND PLAN: 1. Status post incisional hernia repair, robotic. Status post repair of enterorrhaphy. Mesh was not placed. Second-stage operation canceled due to pulmonary edema and plan cardiac catheterization. We will await Cardiology workup. 2. Acute kidney injury, improved with hydration. Acute superimposed on chronic kidney disease. Job ID: [id number]
[2019-10-05] MEDS: Enoxaparin Sodium 30 MG/0.3 ML SYRINGE SC SCH (20:49)
[2019-10-06] MEDS: Meropenem 2 GM, Admixture Fee 1 EACH in Sodium Chloride 0.9% 100 ML IVPB SCH ×3 (02:51→17:43)
[2019-10-06 03:41] LABS: Anion Gap 11 mmol/L (10-20); BUN (Urea Nitrogen) 41 mg/dL (9.8-20.1); Calc. Creatinine Clearance 44 mL/min (70-130); Calcium 9.2 mg/dL (7.8-10.44); Carbon Dioxide 33 mmol/L (23-31); Chloride 97 mmol/L (98-107); Estimated GFR-MDRD 36; Glucose 162 mg/dL (80-115); Potassium 4.5 mmol/L (3.5-5.1); Sodium 136 mmol/L (136-145)
[2019-10-06 03:43] LABS: Band 3 % (5-11); Hemoglobin 10.5 g/dL (12.0-16.0); Lymphocytes 13 % (21-51); MDiff Complete? YES; Mean Corpuscular HGB CONC 34.2 g/dL (32.0-36.0); Mean Corpuscular Hemoglobin 32.1 pg (27.0-31.0); Mean Corpuscular Volume 93.7 fL (78.0-98.0); Mean Platelet Volume 8.3 fL (7.4-10.4); Monocytes 5 % (0-10); Neutrophil 79 % (42-75); Platelet Count 281 thou/uL (130-400); Platelet Morphology Comment Appears Adequate; RBC Distribution Width 11.4 % (11.5-14.5); Red Blood Cell (RBC) Count 3.26 mill/uL (4.20-5.40); White Blood Cell (WBC) Count 14.9 thou/uL (4.8-10.8)
[2019-10-06] MEDS: Carvedilol 6.25 MG TAB PO SCH ×2 (08:26→16:35)
[2019-10-06] MEDS: metFORMIN XR 500 MG TAB PO SCH ×2 (08:26→16:35)
[2019-10-06] MEDS: Aspirin 81 mg Enteric Coated Tablet PO SCH (08:26)
[2019-10-06] MEDS: Furosemide 20 MG/2 ML VIAL SLOW IVP SCH (08:27)
[2019-10-06] MEDS: glipiZIDE 5 MG TAB PO SCH ×2 (08:27→16:35)
[2019-10-06] MEDS: Amlodipine 10 MG TAB PO SCH (08:27)
[2019-10-06] MEDS: Losartan 25 MG TAB PO SCH (08:27)
[2019-10-06] MEDS: methylPREDNISolone Sod Succ 40 MG VIAL IVP SCH (08:28)
--- NOTE | 2019-10-06 09:44 | PRG ---
DATE OF SERVICE: 10/06/2019 SUBJECTIVE: Ms. Horowitz feels much better. She is sitting up in the chair, feels fine now. OBJECTIVE: VITAL SIGNS: Blood pressure is somewhat elevated at 145/59, pulse 100. LUNGS: Clear. CARDIAC: Normal S1, normal S2. ABDOMEN: Soft, nontender. LABORATORY DATA: The patient's creatinine has gone up to 1.45. GFR is 36. ASSESSMENT: 1. Congestive heart failure, diastolic, acute, appears to be resolved. Oxygen levels are normal. Chest x-ray is normal. 2. Renal failure has worsened, probably with the diuresis, her GFR has gone from 56 to 36. PLAN: 1. We will do stress testing to risk stratify, was considering doing a heart catheterization, but with this worsening renal failure, I think it would be better to do a stress test. 2. We will stop furosemide. Job ID: [id number]
--- NOTE | 2019-10-06 10:15 | PDOC.HOSPP ---
- Subjective Encounter Date: 10/06/19 Encounter Time: 10:15 Subjective: Ms. Horowitz was seen today in follow-up of respiratory failure following surgery. She says she is breathing ok. She denies chest pain. - Objective Vital Signs & Weight: Vital Signs (12 hours) Temp Pulse Resp BP Pulse Ox 10/06/19 08:27 102 H 145/59 H 10/06/19 08:26 145/59 H 10/06/19 07:41 97 10/06/19 07:03 98.5 F 10/06/19 06:57 94 20 10/06/19 03:54 98.5 F 10/06/19 01:36 97 10/05/19 23:55 99.7 F H 96 18 98 Weight Weight 159 lb Most Recent Monitor Data Heart Rate from ECG 100 NIBP 145/59 NIBP BP-Mean 87 Respiration from ECG 24 SpO2 99 I&O: 10/05/19 10/06/19 10/07/19 06:59 06:59 06:59 Intake Total 440 1030 Output Total 350 750 Balance 90 280 Result Diagrams: 10/06/19 03:12 10/06/19 03:12 Additional Labs: Accuchecks 10/06/19 10/05/19 10/05/19 05:46 20:33 16:05 POC Glucose 135 H 197 H 221 H 10/05/19 10:10 POC Glucose 214 H Hospitalist ROS - Medication Medications: Active Medications Generic Name Dose Route Start Last Admin Trade Name Freq PRN Reason Stop Dose Admin Albuterol/Ipratropium 3 ml 10/04/19 13:00 10/06/19 06:57 Duoneb NEB 3 ml [id number] AARON Administration Amlodipine Besylate 10 mg 10/03/19 09:00 10/06/19 08:27 Norvasc PO 10 mg DAILY [facility] Administration Aspirin 81 mg 10/05/19 09:00 10/06/19 08:26 Ecotrin PO 81 mg DAILY [facility] Administration Carvedilol 6.25 mg 10/04/19 17:00 10/06/19 08:26 Coreg PO 6.25 mg BID-WM [facility] Administration Enoxaparin Sodium 30 mg 10/02/19 21:00 10/05/19 20:49 Lovenox SC 30 mg 2100 [facility] Administration Glipizide 5 mg 10/02/19 16:30 10/06/19 08:27 Glucotrol PO 5 mg BID-AC [facility] Administration Meropenem 2 gm/ Miscellaneous 100 mls @ 0 mls/hr 10/02/19 18:00 10/06/19 02: 51 Medication 1 each/ Sodium IVPB 100 mls Chloride 0200,1000,1800 [facility] Administration Insulin Human Lispro 0 units 10/02/19 13:53 10/05/19 20:50 Humalog SC 2 unit .MODERATE SLIDING SC PRN Administration Moderate Correctional Scale Ketorolac Tromethamine 15 mg 10/02/19 13:57 10/03/19 12:02 Toradol IVP 10/07/19 13:58 15 mg Q6H PRN Administration Pain Losartan Potassium 100 mg 10/03/19 09:00 10/06/19 08:27 Cozaar PO 100 mg DAILY [facility] Administration Metformin HCl 1,000 mg 10/03/19 08:00 10/06/19 08:26 Glucophage Xr PO 1,000 mg BID-WM [facility] Administration Methylprednisolone Sodium Succinate 40 mg 10/05/19 09:00 10/06/19 08:28 Solu-Medrol IVP 40 mg DAILY [facility] Administration Morphine Sulfate 2 mg 10/02/19 13:53 10/04/19 14:06 Morphine SLOW IVP 2 mg Q2H PRN Administration Severe Pain (7-10) Ondansetron HCl 4 mg 10/02/19 13:53 10/03/19 08:04 Zofran IVP 4 mg Q6H PRN Administration Nausea Sodium Chloride 10 ml 10/02/19 13:53 10/05/19 08:20 Flush - Normal Saline IVF 10 ml PRN PRN Administration Saline Flush Tramadol HCl 50 mg 10/02/19 13:57 10/03/19 05:43 Ultram PO 50 mg Q4H PRN Administration Moderate Pain (4-6) - Exam Eye: PERRL Heart: RRR, no gallops, no rubs, normal peripheral pulses, murmur present, III/ IV (radiating to axilla and back) Respiratory: CTAB (with the exception of coarse breath sounds), no wheezes, no rales, no ronchi, normal chest expansion Gastrointestinal: soft, non-tender, non-distended, normal bowel sounds, no palpable masses, no hepatomegaly Extremities: no cyanosis, no edema Hosp A/P (1) Acute respiratory failure with hypoxemia Code(s): J96.01 - ACUTE RESPIRATORY FAILURE WITH HYPOXIA Status: Acute (2) Incisional hernia Code(s): K43.2 - INCISIONAL HERNIA WITHOUT OBSTRUCTION OR GANGRENE Status: Acute (3) Diabetes mellitus type 2 in obese Code(s): E11.69 - TYPE 2 DIABETES MELLITUS WITH OTHER SPECIFIED COMPLICATION; E66.9 - OBESITY, UNSPECIFIED Status: Chronic (4) Hypertension Code(s): I10 - ESSENTIAL (PRIMARY) HYPERTENSION Status: Chronic - Plan * Acute respiratory failure-plan is for stress test to help screen for ischemic heart disease * She is close to euvolemia- and Lasix has been discontinued * DM- blood glucose is better today * HTN-blood pressure is better * Recent incisional hernia repair- stable
--- NOTE | 2019-10-06 10:22 | RAD ---
Exam: Chest one view HISTORY:Respiratory distress. ARDS Comparison: 10/03/2019 10/04/2019 FINDINGS: Cardiac silhouette:Cardiomegaly Aorta: Atherosclerosis Pulmonary vessels: Normal Costophrenic angles: Clear LUNGS: Improved aeration of the lung parenchyma. Residual interstitial opacities do remain. Pneumothorax: None Osseous abnormalities: None IMPRESSION: Improved aeration. Residual opacities do remain.
--- NOTE | 2019-10-06 11:11 | PRG ---
DATE OF SERVICE: 10/06/2019 SUBJECTIVE: This morning awake, alert, and responsive. OBJECTIVE: VITAL SIGNS: Blood pressure is 145/59, pulse 102, temperature 98, saturations 100%, respiratory rate 18. GENERAL: No distress. No chest pain. No shortness of breath. CHEST: Clear. CARDIAC: Normal S1, S2. No gallops. ABDOMEN: No mass. LABORATORY DATA: Creatinine is 1.45, BUN 45. ASSESSMENT: 1. Status post incisional hernia repair. 2. Congestive heart failure. 3. Renal failure. Antibiotics as per Surgery. Pulmonary will follow while in the MICU. Continue PT supportive care. Job ID: [id number]
--- NOTE | 2019-10-06 16:20 | EKG ---
Test Reason : STAT Blood Pressure : / mmHG Vent. Rate : 107 BPM Atrial Rate : 107 BPM P-R Int : 160 ms QRS Dur : 090 ms QT Int : 358 ms P-R-T Axes : 053 051 123 degrees QTc Int : 477 ms Sinus tachycardia Possible Left atrial enlargement Nonspecific ST and T wave abnormality Abnormal ECG No previous ECGs available Confirmed by DR. Yony BUNDY ([id number]) on 10/06/2019 4:20:13 PM Referred By: OLGA LUCIANO Confirmed By:DR. Yony BUNDY
[2019-10-06] MEDS: HumaLOG 300 UNITS/3 ML VIAL SC PRN (16:36)
[2019-10-06] MEDS: Enoxaparin Sodium 30 MG/0.3 ML SYRINGE SC SCH (20:17)
[2019-10-06] MEDS: Sodium Chloride 0.45% 1,000 ML IV SCH (20:17)
--- NOTE | 2019-10-06 20:49 | PRG ---
DATE OF SERVICE: 10/06/2019 SUBJECTIVE: Uzair Mattson is doing well today. She is tolerating her diet. She feels much better. OBJECTIVE: VITAL SIGNS: Temperature 98.4 degrees, pulse 89, blood pressure 155/62. LUNGS: Clear to auscultation. CARDIAC: Regular rate and rhythm without murmur or gallop. ABDOMEN: Soft, nontender. LABORATORY DATA: White count 14, hemoglobin 10.5. Sodium 136, BUN 41, creatinine 1.45. ASSESSMENT AND PLAN: Dr. Wheeler has decided to perform a stress test tomorrow. we will complete this tomorrow. At this point, I would not plan further surgical intervention. We will plan to let her recover from this event and discharge home after cardiac evaluation. We will follow up her in the office. Consideration of future excision of the large hernia sac, suprapubic, can be given. Consideration of mesh reinforcement, robotically applied, under general anesthesia in the future can be given based on cardiac stress test and clinical course. We will not plan hospitalization. We will plan gentle hydration. Recheck renal function tomorrow. Job ID: [id number]
[2019-10-07] MEDS: Meropenem 2 GM, Admixture Fee 1 EACH in Sodium Chloride 0.9% 100 ML IVPB SCH (02:26)
[2019-10-07 06:26] LABS: Anion Gap 15 mmol/L (10-20); BUN (Urea Nitrogen) 48 mg/dL (9.8-20.1); Calc. Creatinine Clearance 50 mL/min (70-130); Calcium 9.1 mg/dL (7.8-10.44); Carbon Dioxide 28 mmol/L (23-31); Chloride 98 mmol/L (98-107); Estimated GFR-MDRD 42; Glucose 120 mg/dL (80-115); Potassium 4.3 mmol/L (3.5-5.1); Sodium 137 mmol/L (136-145)
[2019-10-07] MEDS: glipiZIDE 5 MG TAB PO SCH ×2 (09:00→16:41)
[2019-10-07] MEDS: Aspirin 81 mg Enteric Coated Tablet PO SCH (09:00)
[2019-10-07] MEDS: metFORMIN XR 500 MG TAB PO SCH ×2 (09:00→16:42)
[2019-10-07] MEDS: Amlodipine 10 MG TAB PO SCH (09:00)
[2019-10-07] MEDS: Carvedilol 6.25 MG TAB PO SCH ×2 (09:01→16:41)
[2019-10-07] MEDS: Losartan 25 MG TAB PO SCH (09:01)
--- NOTE | 2019-10-07 09:20 | PRG ---
DATE OF SERVICE: 10/07/2019 SUBJECTIVE: Srinivasan Horowitz has no shortness of breath, cough, or wheezing. OBJECTIVE: VITAL SIGNS: Temperature 98, sats 98% on room air, pulse 88, and blood pressure 150/68. CHEST: No wheezing or crackles. CARDIAC: Normal S1 and S2. No gallops. ABDOMEN: Soft. LABORATORY DATA: Creatinine 1.27. IMPRESSION: Status post surgery for incisional hernia. Continue supportive, PT. We will follow. Job ID: [id number]
[2019-10-07] MEDS: Meropenem 2 GM in Sodium Chloride 0.9% 100 ML IVPB SCH ×2 (10:57→18:38)
[2019-10-07] MEDS: HumaLOG 300 UNITS/3 ML VIAL SC PRN (11:35)
--- NOTE | 2019-10-07 13:25 | NM ---
3CARDIAC SPECT: CLINICAL HISTORY: 64-year-old female with CHF, chest pain, hypertension, and diabetes. TECHNIQUE: A myocardial perfusion scan was performed using the single isotope two day protocol with 29 mCi techn etium-99m sestamibi injected intravenously for both stress and rest images. Pharmacologic stress with Lexiscan was monitored and interpreted by Yony Gaspar NP. FINDINGS: No fixed defect is seen in the distal anterior wall. No reversible defects are identified. GATED SPECT LVEF: 48%. WALL MOTION EXAM: Mild global hypokinesis. IMPRESSION: No evidence of reversible ischemia. POS: RIC
--- NOTE | 2019-10-07 14:56 | PDOC.HOSPP ---
- Subjective Encounter Date: 10/07/19 Encounter Time: 14:54 Subjective: Ms. Horowitz was seen today in follow-up of respiratory failure following surgery. She does not have any complaints. She denies feeling short of breath, and denies chest pain. - Objective Vital Signs & Weight: Vital Signs (12 hours) Temp Pulse Resp BP Pulse Ox 10/07/19 13:12 93 16 10/07/19 11:32 98.2 F 10/07/19 09:01 159/85 H 10/07/19 09:00 93 159/85 H 10/07/19 07:26 98.4 F 10/07/19 07:20 91 L 10/07/19 06:52 80 16 10/07/19 04:08 82 16 10/07/19 04:00 99.1 F Weight Weight 159 lb Most Recent Monitor Data Heart Rate from ECG 99 NIBP 150/68 NIBP BP-Mean 95 Respiration from ECG 17 SpO2 98 I&O: 10/06/19 10/07/19 10/08/19 06:59 06:59 06:59 Intake Total 1030 1354 Output Total 750 Balance 280 1354 Result Diagrams: 10/06/19 03:12 10/07/19 04:52 Additional Labs: Accuchecks 10/07/19 10/07/19 10/06/19 11:33 05:53 20:25 POC Glucose 199 H 119 H 159 H 10/06/19 16:38 POC Glucose 235 H Hospitalist ROS - Medication Medications: Active Medications Generic Name Dose Route Start Last Admin Trade Name Freq PRN Reason Stop Dose Admin Albuterol/Ipratropium 3 ml 10/04/19 13:00 10/07/19 13:12 Duoneb NEB 3 ml [id number] AARON Administration Amlodipine Besylate 10 mg 10/03/19 09:00 10/07/19 09:00 Norvasc PO 10 mg DAILY [facility] Administration Aspirin 81 mg 10/05/19 09:00 10/07/19 09:00 Ecotrin PO 81 mg DAILY [facility] Administration Carvedilol 6.25 mg 10/04/19 17:00 10/07/19 09:01 Coreg PO Not Given BID-WM [facility] Enoxaparin Sodium 30 mg 10/02/19 21:00 10/06/19 20:17 Lovenox SC 30 mg 2100 [facility] Administration Glipizide 5 mg 10/02/19 16:30 10/07/19 09:00 Glucotrol PO 5 mg BID-AC [facility] Administration Sodium Chloride 1,000 mls @ 75 mls/hr 10/06/19 19:45 10/06/19 20:17 1/2 Normal Saline IV 1,000 mls .[id number] [facility] Administration Meropenem 2 gm/ Sodium 100 mls @ 100 mls/hr 10/07/19 10:00 10/07/19 10:57 Chloride IVPB 100 mls 0200,1000,1800 [facility] Administration Insulin Human Lispro 0 units 10/02/19 13:53 10/07/19 11:35 Humalog SC 2 unit .MODERATE SLIDING SC PRN Administration Moderate Correctional Scale Losartan Potassium 100 mg 10/03/19 09:00 10/07/19 09:01 Cozaar PO 100 mg DAILY [facility] Administration Metformin HCl 1,000 mg 10/03/19 08:00 10/07/19 09:00 Glucophage Xr PO 1,000 mg BID-WM [facility] Administration Morphine Sulfate 2 mg 10/02/19 13:53 10/04/19 14:06 Morphine SLOW IVP 2 mg Q2H PRN Administration Severe Pain (7-10) Ondansetron HCl 4 mg 10/02/19 13:53 10/03/19 08:04 Zofran IVP 4 mg Q6H PRN Administration Nausea Sodium Chloride 10 ml 10/02/19 13:53 10/05/19 08:20 Flush - Normal Saline IVF 10 ml PRN PRN Administration Saline Flush Tramadol HCl 50 mg 10/02/19 13:57 10/03/19 05:43 Ultram PO 50 mg Q4H PRN Administration Moderate Pain (4-6) - Exam Eye: PERRL Heart: RRR, no gallops, no rubs, normal peripheral pulses, murmur present, III/ IV (radiating to the back) Respiratory: CTAB, no wheezes, no rales, no ronchi, normal chest expansion Gastrointestinal: soft, non-tender, non-distended, normal bowel sounds, no palpable masses, no hepatomegaly, no splenomegaly Extremities: no cyanosis, no edema Hosp A/P (1) Acute respiratory failure with hypoxemia Code(s): J96.01 - ACUTE RESPIRATORY FAILURE WITH HYPOXIA Status: Acute (2) Incisional hernia Code(s): K43.2 - INCISIONAL HERNIA WITHOUT OBSTRUCTION OR GANGRENE Status: Acute (3) Diabetes mellitus type 2 in obese Code(s): E11.69 - TYPE 2 DIABETES MELLITUS WITH OTHER SPECIFIED COMPLICATION; E66.9 - OBESITY, UNSPECIFIED Status: Chronic (4) Hypertension Code(s): I10 - ESSENTIAL (PRIMARY) HYPERTENSION Status: Chronic - Plan * Acute respiratory failure-stress test was negative- will await further Cardiology recommendations * She is melody euvolemic * DM- blood glucose is better today * HTN-blood pressure is slightly elevated- will monitor * Recent incisional hernia repair- stable * Disposition as per Cardiology and General Surgery
[2019-10-07] MEDS ORDERED: Sodium Chloride 0.45% 1,000 ML IV SCH (16:45)
[2019-10-07] MEDS ORDERED: Communication Order-Pharmacy FS SCH (16:45)
--- NOTE | 2019-10-07 16:50 | PRG ---
DATE OF SERVICE: 10/07/2019 SUBJECTIVE: Ms. Carlos Manuel Mattson is feeling better. She is not short of breath now. She is sitting up in a chair. OBJECTIVE: VITAL SIGNS: Her blood pressure is 159/85, pulse is 80. LUNGS: Clear. CARDIAC: Normal S1, normal S2. ABDOMEN: Soft, nontender. EXTREMITIES: There is no edema. Reviewed the stress test. There is a fixed defect of the inferior wall at rest and stress with ejection fraction 48%. The fish bait processing supervisor actually indicates there is no fixed defect in the distal anterior wall, but I believe it is actually, there is a fixed defect in the mid to distal anterior wall. ASSESSMENT: 1. Abrupt onset of shortness of breath and pulmonary edema, probably related to coronary artery disease. 2. Longstanding diabetes. 3. Postoperative status. PLAN: Recommend she proceed to cardiac catheterization. Discussed risks with her and with her daughter. Discussed risk of stroke, heart attack, iodine allergy, loss of blood supply to leg or kidney, stent thrombosis, stent restenosis. The patient understands and wished to proceed. It will be arranged for tomorrow. Job ID: [id number]
[2019-10-07] MEDS ORDERED: Regadenoson 0.4 MG/5 ML SYRINGE ONE (17:04)
[2019-10-07] MEDS: Sodium Chloride 0.45% 1,000 ML IV SCH (19:29)
--- NOTE | 2019-10-07 21:08 | PRG ---
DATE OF SERVICE: 10/07/2019 SUBJECTIVE: Uzair Mattson is doing well today. She is tolerating her diet. She denies having abdominal pain. Her hernia repair is intact. OBJECTIVE: LUNGS: Clear to auscultation. CARDIAC: Regular rate and rhythm without murmur or gallop. ABDOMEN: Soft, nontender. VITAL SIGNS: Temperature 98.9 degrees, pulse 86, blood pressure 162/71. ASSESSMENT AND PLAN: Cardiac stress test reported as no reversible ischemia, but Dr. Wheeler appreciates a wall defect and cardiac cath is planned for tomorrow. Her creatinine is 1.27, BUN 48. She has been gently hydrated overnight. At this point, we will check her laboratories in the morning. Await cardiac cath results pending Dr. Wheeler's opinion. She can be discharged home after medical evaluation is completed. Job ID: [id number]
[2019-10-08] MEDS: Meropenem 2 GM in Sodium Chloride 0.9% 100 ML IVPB SCH ×3 (02:05→18:36)
[2019-10-08 04:34] LABS: #Basophils 0.1 thou/uL (0.0-0.2); #Eosinphils 0.3 thou/uL (0.0-0.7); #Lymphocytes 3.2 thou/uL (1.20-3.40); #Monocytes 1.6 thou/uL (0.11-0.59); #Neutrophils 7.1 thou/uL (1.40-6.50); %Basophils 0.4 % (0.0-1.0); %Eosinophils 2.2 % (0.0-10.0); %Lymphocytes 26.4 % (21.0-51.0); %Monocytes 13.3 % (0.0-10.0); %Neutrophils 57.6 % (42.0-75.0); Hemoglobin 12.1 g/dL (12.0-16.0); Mean Corpuscular HGB CONC 34.3 g/dL (32.0-36.0); Mean Corpuscular Hemoglobin 31.9 pg (27.0-31.0); Mean Corpuscular Volume 92.9 fL (78.0-98.0); Mean Platelet Volume 8.4 fL (7.4-10.4); Platelet Count 347 thou/uL (130-400); RBC Distribution Width 11.5 % (11.5-14.5); Red Blood Cell (RBC) Count 3.79 mill/uL (4.20-5.40); White Blood Cell (WBC) Count 12.3 thou/uL (4.8-10.8)
[2019-10-08 04:57] LABS: Anion Gap 14 mmol/L (10-20); BUN (Urea Nitrogen) 33 mg/dL (9.8-20.1); Calc. Creatinine Clearance 61 mL/min (70-130); Calcium 9.2 mg/dL (7.8-10.44); Carbon Dioxide 27 mmol/L (23-31); Chloride 99 mmol/L (98-107); Estimated GFR-MDRD 53; Glucose 71 mg/dL (80-115); Potassium 3.8 mmol/L (3.5-5.1); Sodium 136 mmol/L (136-145)
[2019-10-08] MEDS: Aspirin 81 mg Enteric Coated Tablet PO SCH (05:35)
[2019-10-08] MEDS: Amlodipine 10 MG TAB PO SCH (05:36)
[2019-10-08] MEDS: Losartan 25 MG TAB PO SCH (05:36)
[2019-10-08] MEDS ORDERED: Sodium Chloride 0.9% 1,000 ML IV SCH (06:00)
[2019-10-08] MEDS ORDERED: Heparin (Artline) 1,000 ML ONE (06:44)
[2019-10-08] MEDS ORDERED: Lidocaine 1% (PF) 30 ML VIAL ONE (06:44)
[2019-10-08] MEDS ORDERED: Fentanyl 100 MCG/2 ML VIAL ONE (07:12)
[2019-10-08] MEDS ORDERED: Metoprolol Tartrate 5 MG/5 ML VIAL ONE (07:20)
[2019-10-08] MEDS ORDERED: Nitroglycerin 100MG/250ML BOT 250 ML ONE (07:30)
[2019-10-08] MEDS: Carvedilol 6.25 MG TAB PO SCH ×2 (08:02→17:12)
[2019-10-08] MEDS: metFORMIN XR 500 MG TAB PO SCH ×2 (08:02→17:12)
[2019-10-08] MEDS: glipiZIDE 5 MG TAB PO SCH ×2 (08:03→17:12)
[2019-10-08] MEDS ORDERED: Acetaminophen/Codeine 30-300mg Tablet PO PRN (08:26)
[2019-10-08] MEDS ORDERED: Sodium Chloride 0.9% 200 ML IV PRN (08:26)
[2019-10-08] MEDS ORDERED: Nitroglycerin 0.4 MG TAB (25 Tab Bottle) SL PRN (08:26)
[2019-10-08] MEDS ORDERED: Iopamidol 370 76% 100 ML VIAL ONE (09:32)
--- NOTE | 2019-10-08 17:03 | PDOC.HOSPP ---
- Subjective Encounter Date: 10/08/19 Encounter Time: 17:01 Subjective: Ms. Horowitz was seen today in follow-up. She is post cardiac cath. She does not have any complaints. - Objective Vital Signs & Weight: Vital Signs (12 hours) Temp Pulse Resp BP BP Pulse Ox 10/08/19 13:31 88 16 99 10/08/19 12:00 98.7 F 89 16 159/69 H 96 10/08/19 08:30 98.5 F 87 18 163/67 H 96 10/08/19 05:36 95 161/69 H Weight Weight 153 lb 8 oz Most Recent Monitor Data Heart Rate from ECG 99 NIBP 154/65 NIBP BP-Mean 94 Respiration from ECG 17 SpO2 95 I&O: 10/07/19 10/08/19 10/09/19 06:59 06:59 06:59 Intake Total 1354 2545 Balance 1354 2545 Result Diagrams: 10/08/19 04:08 10/08/19 04:08 Additional Labs: Accuchecks 10/08/19 10/08/19 10/07/19 10:04 05:11 20:09 POC Glucose 127 H 70 76 Hospitalist ROS - Medication Medications: Active Medications Generic Name Dose Route Start Last Admin Trade Name Freq PRN Reason Stop Dose Admin Albuterol/Ipratropium 3 ml 10/04/19 13:00 10/08/19 13:31 Duoneb NEB 3 ml [id number] AARON Administration Amlodipine Besylate 10 mg 10/03/19 09:00 10/08/19 05:36 Norvasc PO 10 mg DAILY AARON Administration Aspirin 81 mg 10/05/19 09:00 10/08/19 05:35 Ecotrin PO 81 mg DAILY AARON Administration Carvedilol 6.25 mg 10/04/19 17:00 10/08/19 08:02 Coreg PO Not Given BID-WM AARON Glipizide 5 mg 10/02/19 16:30 10/08/19 08:03 Glucotrol PO Not Given BID-AC AARON Meropenem 2 gm/ Sodium 100 mls @ 100 mls/hr 10/07/19 10:00 10/08/19 10:18 Chloride IVPB 100 mls 0200,1000,1800 AARON Administration Sodium Chloride 1,000 mls @ 80 mls/hr 10/08/19 06:00 10/08/19 05:35 Normal Saline 0.9% IV 1,000 mls .[id number] AARON Administration Insulin Human Lispro 0 units 10/02/19 13:53 10/07/19 11:35 Humalog SC 2 unit .MODERATE SLIDING SC PRN Administration Moderate Correctional Scale Losartan Potassium 100 mg 10/03/19 09:00 10/08/19 05:36 Cozaar PO 100 mg DAILY AARON Administration Metformin HCl 1,000 mg 10/03/19 08:00 10/08/19 08:02 Glucophage Xr PO Not Given BID-WM AARON Morphine Sulfate 2 mg 10/02/19 13:53 10/04/19 14:06 Morphine SLOW IVP 2 mg Q2H PRN Administration Severe Pain (7-10) Ondansetron HCl 4 mg 10/02/19 13:53 10/03/19 08:04 Zofran IVP 4 mg Q6H PRN Administration Nausea Sodium Chloride 10 ml 10/02/19 13:53 10/05/19 08:20 Flush - Normal Saline IVF 10 ml PRN PRN Administration Saline Flush Tramadol HCl 50 mg 10/02/19 13:57 10/03/19 05:43 Ultram PO 50 mg Q4H PRN Administration Moderate Pain (4-6) - Exam Eye: PERRL Heart: RRR, no murmur, no gallops, no rubs, murmur present, III/IV Respiratory: CTAB, no wheezes, no rales, no ronchi, normal chest expansion Gastrointestinal: soft, non-tender, non-distended, normal bowel sounds, no palpable masses, no hepatomegaly Extremities: no cyanosis, no clubbing, no edema Hosp A/P (1) Acute respiratory failure with hypoxemia Code(s): J96.01 - ACUTE RESPIRATORY FAILURE WITH HYPOXIA Status: Acute (2) Incisional hernia Code(s): K43.2 - INCISIONAL HERNIA WITHOUT OBSTRUCTION OR GANGRENE Status: Acute (3) Diabetes mellitus type 2 in obese Code(s): E11.69 - TYPE 2 DIABETES MELLITUS WITH OTHER SPECIFIED COMPLICATION; E66.9 - OBESITY, UNSPECIFIED Status: Chronic (4) Hypertension Code(s): I10 - ESSENTIAL (PRIMARY) HYPERTENSION Status: Chronic - Plan * Acute respiratory failure-due to CAD- cardiac cath results noted * She will be treated medically * DM-blood glucose is stable * HTN-blood pressure is slightly elevated * Recent incisional hernia repair- stable * Disposition as per Cardiology and General Surgery
--- NOTE | 2019-10-08 17:06 | PRG ---
DATE OF SERVICE: 10/08/2019 SUBJECTIVE: The patient has been moved to telemetry. She is doing very well. 98.7, 88, 159/69. She is tolerating her diet this morning. Dr. Wheeler performed a cardiac catheterization. Findings were that of minimal coronary artery disease. She did however have a 40 mm pressure gradient between her intraabdominal aorta and thoracic aorta. On her CAT scan obtained earlier, she was noted on her CTA 10/03/2019 to have a very small descending thoracic aorta 1.1 cm greatest diameter above the level of the diaphragm with prominent calcification throughout the arterial structures. At that time, she did not have an embolus. Dr. Wheeler is planning medical treatment of coronary artery disease probably suspecting cardiac dysfunction. It is detailed that it was safe to proceed with laparoscopic application of mesh with excision of a hernia sac, but I think at this time we will perform at a later time as an outpatient in future. I will see her in my office in 1 to 2 weeks. OBJECTIVE: LUNGS: Clear to auscultation. CARDIAC: Regular rate and rhythm without murmur or gallop. ABDOMEN: Soft and nontender. Her hernia repair is intact and she has a redundant skin excoriation from a large hernia sac. Her white count is 12, hemoglobin 12. This morning, her BUN has improved from 48 to 33 and yesterday creatinine was 1.27, today 1.04. ASSESSMENT AND PLAN: Chronic kidney disease and this improved with hydration. Renal status, monitor tomorrow. If renal function is stable, she will be discharged home. Job ID: [id number]
[2019-10-09] MEDS: Meropenem 2 GM in Sodium Chloride 0.9% 100 ML IVPB SCH ×2 (02:14→10:53)
[2019-10-09 05:03] LABS: #Eosinphils 0.6 thou/uL (0.0-0.7); #Lymphocytes 3.3 thou/uL (1.20-3.40); #Monocytes 1.4 thou/uL (0.11-0.59); #Neutrophils 6.6 thou/uL (1.40-6.50); %Basophils 0.4 % (0.0-1.0); %Eosinophils 4.9 % (0.0-10.0); %Lymphocytes 27.9 % (21.0-51.0); %Monocytes 11.9 % (0.0-10.0); Hemoglobin 12.6 g/dL (12.0-16.0); Mean Corpuscular HGB CONC 33.6 g/dL (32.0-36.0); Mean Corpuscular Hemoglobin 31.4 pg (27.0-31.0); Mean Corpuscular Volume 93.5 fL (78.0-98.0); Mean Platelet Volume 8.5 fL (7.4-10.4); Platelet Count 356 thou/uL (130-400); RBC Distribution Width 11.5 % (11.5-14.5); Red Blood Cell (RBC) Count 4.02 mill/uL (4.20-5.40); White Blood Cell (WBC) Count 11.9 thou/uL (4.8-10.8)
[2019-10-09 05:22] LABS: Anion Gap 12 mmol/L (10-20); BUN (Urea Nitrogen) 20 mg/dL (9.8-20.1); Calc. Creatinine Clearance 67 mL/min (70-130); Carbon Dioxide 27 mmol/L (23-31); Chloride 99 mmol/L (98-107); Estimated GFR-MDRD 61; Glucose 108 mg/dL (80-115); Potassium 3.9 mmol/L (3.5-5.1); Sodium 134 mmol/L (136-145)
[2019-10-09] MEDS: Carvedilol 6.25 MG TAB PO SCH (08:54)
[2019-10-09] MEDS: glipiZIDE 5 MG TAB PO SCH (08:54)
[2019-10-09] MEDS: metFORMIN XR 500 MG TAB PO SCH (08:55)
[2019-10-09] MEDS: Amlodipine 10 MG TAB PO SCH (08:55)
[2019-10-09] MEDS: Aspirin 81 mg Enteric Coated Tablet PO SCH (08:59)
[2019-10-09] MEDS ORDERED: Losartan 25 MG TAB PO SCH (09:00)
[2019-10-09] MEDS ORDERED: Furosemide 20 MG TAB PO SCH (09:00)
[2019-10-09] MEDS ORDERED: Olmesartan 5 MG TAB PO SCH (09:00)
--- NOTE | 2019-10-09 09:27 | PRG ---
DATE OF SERVICE: 10/09/2019 SUBJECTIVE: Ms. Horowitz is doing well. No complaints. She feels well. No shortness of breath. OBJECTIVE: VITAL SIGNS: Her blood pressure is 159/69, pulse 90 recorded, but it is sinus with PACs. LUNGS: Clear. CARDIAC: Normal S1. Normal S2. ABDOMEN: Soft and nontender. ASSESSMENT: 1. Status post urgent abdominal surgery as outlined in the chart. 2. Coronary artery disease, minimal. No obstructive plaque. 3. Diabetes. 4. Hypertension. 5. Diastolic heart failure, had an episode in the hospital the day after surgery. PLAN: 1. She is going to go home on amlodipine 10 mg a day. 2. Losartan 100 mg a day or Benicar 40 mg a day, I think it was actually her home med. 3. Furosemide 20 mg a day. 4. Aspirin 81 mg a day. 5. Crestor 20 mg a day. Job ID: [id number]
[2019-10-09 11:01] VITALS: BP 151/64; TEMP 98.7
[2019-10-09] MEDS: HumaLOG 300 UNITS/3 ML VIAL SC PRN (12:25)
--- NOTE | 2019-10-09 13:11 | PRG ---
DATE OF SERVICE: 10/09/2019 Uzair Mattson is doing well today. Her renal function is normalized. Cardiac catheterization was normal. She was felt to have a defect on HIDA scan by Dr. Wheeler, although Radiology read it as normal. At this point, the patient is stable for discharge. I have talked to Dr. Wheeler who believes it is safe to proceed with any general anesthetics in the future as indicated. With her diastolic dysfunction and her pulmonary edema occurring a day and a half after surgery, would have to manage her carefully perioperatively. At this point, my plan was to robotically place mesh to reinforce the fascial closure and excise the hernia sac. We will reassess her in 2 to 3 weeks in the office and see how she is doing and discuss at that time whether that is really necessary. Job ID: [id number]
[2019-10-09] MEDS ORDERED: Rosuvastatin 20 MG TAB PO SCH (21:00)
--- NOTE | 2019-10-10 15:25 | DIS ---
DATE OF ADMISSION: 10/02/2019 DATE OF DISCHARGE: 10/09/2019 DISCHARGE DISPOSITION: Home. DISCHARGE DIAGNOSES: 1. Incisional hernia. 2. Acute respiratory failure with hypoxemia. 3. Acute on chronic diastolic heart failure. 4. Hypertension. 5. Diabetes mellitus, type 2. 6. Coronary artery disease. DISCHARGE MEDICATIONS: Include; 1. Crestor 20 mg daily. 2. Cozaar 100 mg daily. 3. Lasix 20 mg p.o. daily. 4. Carvedilol 6.25 mg twice a day. 5. Aspirin 81 mg daily. 6. Amlodipine 10 mg daily. 7. Fortamet 1000 mg twice a day. 8. Glipizide 5 mg p.o. twice daily. PROCEDURES DONE DURING ADMISSION: The patient had surgery for a recurrent incisional hernia with incarcerated small bowel and she had laparoscopic adhesiolysis. The patient also had a CT angiogram of the chest showing pulmonary vascular congestion and bilateral small pleural effusions. The patient had an echocardiogram, in which the ejection fraction was estimated at 55% to 60%. The left atrium was moderate to severely dilated and there was some mitral regurgitation present. The patient had a nuclear stress test, in which there was no evidence of reversible ischemia, but there was a fixed defect seen in the distal anterior wall. The patient had a cardiac catheterization, which demonstrated some mild coronary artery disease between 20% and 40%. CODE STATUS: Full code. ALLERGIES: NO KNOWN DRUG ALLERGIES. HOSPITAL COURSE: Ms. Horowitz is a pleasant 64-year-old female, who was admitted for an elective incisional hernia repair. Postoperatively, she developed respiratory distress with volume overload. She was moved to the [facility] and diuresed. Cardiology was consulted. She underwent echocardiogram as well as a stress test. Due to the concern for a fixed defect, a cardiac catheterization was performed. She was found to have moderate coronary artery disease, which did not require any intervention. Medical therapy was recommended. After she was stabilized, she was able to be discharged home with close outpatient followup. Crestor as well as a baby dose aspirin and carvedilol were added to her regimen. Job ID: [id number]
== END 2019-10-09 13:15 | disposition home or self-care (01) | DRG 329 ==
LOC: SDC 08:42 → SURG B 16:42 → IMCU/EMU 10-03 23:43 → 2NO 10-07 21:54
PROVIDERS: ADMIT Specialist; ATTEND Specialist
PROC: 0DNU4ZZ Release Omentum, Percutaneous Endoscopic Approach (ICD-10-PCS; principal; 2019-10-02)
PROC: 0DQ84ZZ Repair Small Intestine, Percutaneous Endoscopic Approach (ICD-10-PCS; 2019-10-02)
PROC: 8E0W4CZ Robotic Assisted Procedure of Trunk Region, Percutaneous Endoscopic Approach (ICD-10-PCS; 2019-10-02)
PROC: 0WQF4ZZ Repair Abdominal Wall, Percutaneous Endoscopic Approach (ICD-10-PCS; 2019-10-02)
PROC: 4A023N7 Measurement of Cardiac Sampling and Pressure, Left Heart, Percutaneous Approach (ICD-10-PCS; 2019-10-08)
PROC: B2111ZZ Fluoroscopy of Multiple Coronary Arteries using Low Osmolar Contrast (ICD-10-PCS; 2019-10-08)
PROC: B2151ZZ Fluoroscopy of Left Heart using Low Osmolar Contrast (ICD-10-PCS; 2019-10-08)
DX: K43.0 Incisional hernia with obstruction, without gangrene (principal); J96.01 Acute respiratory failure with hypoxia; J18.9 Pneumonia, unspecified organism; I50.23 Acute on chronic systolic (congestive) heart failure; N17.9 Acute kidney failure, unspecified; I13.0 Hypertensive heart and chronic kidney disease with heart failure and stage 1 through stage 4 chronic kidney disease, or unspecified chronic kidney disease; Z79.84 Long term (current) use of oral hypoglycemic drugs; Z79.899 Other long term (current) drug therapy; R53.81 Other malaise; E11.22 Type 2 diabetes mellitus with diabetic chronic kidney disease; I25.10 Atherosclerotic heart disease of native coronary artery without angina pectoris; N18.9 Chronic kidney disease, unspecified
CPT/HCPCS: 36415; 36416; 71045; 71275; 76942; 78452; 80048; 80061; 82805; 83880; 84484; 85025; 87070; 93005; 93010; 93017; 93306; 93458; 94640; A9500; C1769; J0131; J0670; J0690; J1644; J1650; J1885; J1940; J2001; J2185; J2270; J2405; J2704; J2785; J2920; J3010; J3490; J7620; Q9967; S0028